=== PATIENT | female | born 1975 | race Caucasian/White ===

== ENCOUNTER 2017-06-21 09:33 | Inpatient (IN) | payer OTHER ==
[2017-06-21] MEDS ORDERED: METHYLERGONOVINE 0.2 MG INJ IM (12:00)
[2017-06-21] MEDS ORDERED: IBUPROFEN 600 MG TAB PO (12:00)
[2017-06-21] MEDS ORDERED: MISOPROSTOL 200 MCG TAB PR (12:00)
[2017-06-21] MEDS ORDERED: OXYTOCIN 30 UNITS/LR 500 ML IV ×2 (12:00)
[2017-06-21] MEDS ORDERED: CARBOPROST 250 MCG INJ IM (12:00)
[2017-06-21] MEDS ORDERED: BUTORPHANOL 2 MG INJ IV (12:00)
[2017-06-21] MEDS: LACTATED RINGER'S 1,000 ML IV (14:17)
[2017-06-21] MEDS: OXYTOCIN 30 UNITS/LR 500 ML IV ×3 (14:23→21:28)
[2017-06-21 14:32] LABS: ADD MAN DIFF? NO
[2017-06-21 14:34] LABS: BASOPHILS % 0.2 % (0.0-2.0); EOSINOPHILS % 0.2 % (0.0-7.0); HEMATOCRIT 38.5 % (37.0-47.0); HEMOGLOBIN 13.2 g/dl (12.0-16.0); LYMPHOCYTES % 11.7 % (15.0-51.0); MEAN CORPUSCULAR HEMOGLOBIN 31.9 pg (29.0-33.0); MEAN CORPUSCULAR HGB CONC 34.3 g/dl (32.0-37.0); MEAN PLATELET VOLUME 12.1 fl (7.4-10.4); MONOCYTE # 0.5 10^3/ul (0.3-0.9); MONOCYTES % 5.5 % (0.0-11.0); NEUTROPHIL # 7.3 10^3/ul (1.6-7.5); NEUTROPHILS % 81.9 % (39.0-77.0); PLATELET COUNT 174 10^3/UL (140-415); RED BLOOD COUNT 4.14 10^6/ul (4.20-5.40)
[2017-06-21 14:34] LABS: WHITE BLOOD COUNT 8.9 10^3/ul (4.8-10.8)
[2017-06-21 14:52] LABS: INR 0.87; PROTIME 11.9 Sec (11.9-14.9); PT RATIO 0.9
[2017-06-21 14:53] LABS: PARTIAL THROMBOPLASTIN TIME 27.6 Sec (25.0-35.0)
[2017-06-21 15:26] LABS: RAPID PLASMA REAGIN NONREACTIVE (NR)
[2017-06-21] MEDS: LIDOCAINE 1% (MPF) 30 ML INJ INJ (16:37)
[2017-06-21] MEDS ORDERED: ACETAMINOPHEN 325 MG TAB PO (18:30)
[2017-06-21] MEDS ORDERED: LANOLIN 7 GM TUBE TOP (18:30)
[2017-06-21] MEDS: IBUPROFEN 600 MG TAB PO ×2 (18:30→23:59)
[2017-06-21] MEDS ORDERED: ONDANSETRON 4 MG INJ IV (18:30)
[2017-06-21] MEDS ORDERED: HYDROCODONE/APAP (5/325) TAB PO (18:30)
[2017-06-21] MEDS ORDERED: DIBUCAINE 1% 30 GM OINT TOP (18:30)
[2017-06-21] MEDS ORDERED: OXYCODONE/ASPIRIN (4.88/325) TAB PO ×2 (18:30)
[2017-06-21] MEDS: WITCH HAZEL/GLYCERIN PAD PR (21:25)
[2017-06-21] MEDS: BENZOCAINE 20% 56 ML SPRAY TOP (21:26)
[2017-06-21] MEDS: SENNA/DOCUSATE NA (8.6MG/50MG) TAB PO (21:32)
[2017-06-21] MEDS: HYDROCODONE/APAP (5/325) TAB PO (21:33)
[2017-06-22] MEDS: IBUPROFEN 600 MG TAB PO ×3 (05:27→17:39)
[2017-06-22] MEDS: SENNA/DOCUSATE NA (8.6MG/50MG) TAB PO (10:37)
[2017-06-22 10:59] LABS: ADD MAN DIFF? NO
[2017-06-22 11:08] LABS: WHITE BLOOD COUNT 10.6 10^3/ul (4.8-10.8)
[2017-06-22 11:08] LABS: BASOPHILS % 0.3 % (0.0-2.0); EOSINOPHILS % 0.2 % (0.0-7.0); HEMATOCRIT 32.6 % (37.0-47.0); LYMPHOCYTES # 1.3 10^3/ul (0.8-2.9); LYMPHOCYTES % 11.8 % (15.0-51.0); MEAN CORPUSCULAR HEMOGLOBIN 31.7 pg (29.0-33.0); MEAN CORPUSCULAR HGB CONC 33.7 g/dl (32.0-37.0); MEAN CORPUSCULAR VOLUME 93.9 fl (82.0-101.0); MEAN PLATELET VOLUME 11.7 fl (7.4-10.4); MONOCYTE # 0.8 10^3/ul (0.3-0.9); MONOCYTES % 7.2 % (0.0-11.0); NEUTROPHIL # 8.4 10^3/ul (1.6-7.5); NEUTROPHILS % 79.8 % (39.0-77.0); PLATELET COUNT 152 10^3/UL (140-415); RED BLOOD COUNT 3.47 10^6/ul (4.20-5.40)
[2017-06-23] MEDS: SENNA/DOCUSATE NA (8.6MG/50MG) TAB PO ×2 (00:16→08:05)
[2017-06-23] MEDS: IBUPROFEN 600 MG TAB PO ×4 (00:16→17:58)
[2017-06-23] MEDS: BENZOCAINE 20% 56 ML SPRAY TOP (08:05)
[2017-06-23] MEDS: WITCH HAZEL/GLYCERIN PAD PR (08:06)
[2017-06-23] MEDS: MEASLES,MUMPS,RUBELLA VACCINE INJ SC* (09:00)
[2017-06-23] MEDS: DIPHTH/TET/ACEL PERTUSS (ADULT) 0.5 ML VIAL IM* (15:53)
== END 2017-06-23 18:45 | disposition home or self-care (01) | DRG 775 ==
LOC: OBT 09:33 → L-D 09:33 → OBT 11:54 → L-D 11:45 → PP1 18:23
PROVIDERS: Obstetrics & Gynecology
PROC: 10E0XZZ Delivery of Products of Conception, External Approach (ICD-10-PCS; principal; 2017-06-21)
PROC: 0HQ9XZZ Repair Perineum Skin, External Approach (ICD-10-PCS; 2017-06-21)
DX: O62.3 Precipitate labor (principal); O70.0 First degree perineal laceration during delivery; Z3A.40 40 weeks gestation of pregnancy; Z37.0 Single live birth
CPT/HCPCS: 85025; 85610; 85730; 86592; 86900; 86901; 90715

== ENCOUNTER 2017-11-06 09:49 | Emergency (ER) | payer OTHER ==
[2017-11-06] MEDS: ONDANSETRON (ODT) 4 MG TAB ODT (11:17)
[2017-11-06] MEDS: KETOROLAC 60 MG INJ IM (11:19)
[2017-11-06 11:33] LABS: ADD MAN DIFF? NO
[2017-11-06 11:43] LABS: WHITE BLOOD COUNT 9.8 10^3/ul (4.8-10.8)
[2017-11-06 11:43] LABS: BASOPHILS % 0.3 % (0.0-2.0); EOSINOPHILS % 0.2 % (0.0-7.0); HEMATOCRIT 41.7 % (37.0-47.0); LYMPHOCYTES # 1.4 10^3/ul (0.8-2.9); LYMPHOCYTES % 14.6 % (15.0-51.0); MEAN CORPUSCULAR HEMOGLOBIN 30.9 pg (29.0-33.0); MEAN CORPUSCULAR HGB CONC 33.6 g/dl (32.0-37.0); MEAN CORPUSCULAR VOLUME 92.1 fl (82.0-101.0); MEAN PLATELET VOLUME 10.7 fl (7.4-10.4); MONOCYTE # 0.6 10^3/ul (0.3-0.9); MONOCYTES % 6.1 % (0.0-11.0); NEUTROPHIL # 7.7 10^3/ul (1.6-7.5); NEUTROPHILS % 78.4 % (39.0-77.0); PLATELET COUNT 257 10^3/UL (140-415); RED BLOOD COUNT 4.53 10^6/ul (4.20-5.40)
[2017-11-06 12:01] LABS: ALANINE AMINOTRANSFERASE 34 IU/L (13-69); ALBUMIN 4.4 g/dl (3.3-4.9); ALBUMIN/GLOBULIN RATIO 1.22; ALKALINE PHOSPHATASE 68 IU/L (42-121); AMYLASE 76 U/L (11-123); ANION GAP 13 (8-16); ASPARTATE AMINO TRANSFERASE 26 IU/L (15-46); BILIRUBIN,INDIRECT 0.5 mg/dl (0-1.1); BILIRUBIN,TOTAL 0.5 mg/dl (0.2-1.3); BLOOD UREA NITROGEN 14 mg/dl (7-20); CALCIUM 8.9 mg/dl (8.4-10.2); CARBON DIOXIDE 27 mmol/L (21-31); CHLORIDE 107 mmol/L (97-110); CREATININE 0.72 mg/dl (0.44-1.00); GLUCOSE 120 mg/dl (70-220); LIPASE 70 U/L (23-300); POTASSIUM 3.7 mmol/L (3.5-5.1); SODIUM 143 mmol/L (135-144)
[2017-11-06 12:17] LABS: ADD UMIC YES; UR ASCORBIC ACID NEGATIVE (NEGATIVE); UR BACTERIA FEW /HPF (NONE SEEN); UR BILIRUBIN (Dip) NEGATIVE (NEGATIVE); UR BLOOD (Dip) 1+ mg/dL (NEGATIVE); UR CLARITY CLOUDY (CLEAR); UR COLOR YELLOW (YELLOW); UR GLUCOSE (Dip) NEGATIVE (NEGATIVE); UR KETONES (Dip) NEGATIVE (NEGATIVE); UR LEUKOCYTE ESTERASE (Dip) NEGATIVE Leu/ul (NEGATIVE); UR MUCUS MANY /HPF (NONE SEEN); UR NITRITE (Dip) NEGATIVE (NEGATIVE); UR RBC 69 /HPF (0-5); UR SPECIFIC GRAVITY (Dip) 1.023 (1.003-1.030); UR SQUAMOUS EPITHELIAL CELL FEW /HPF (FEW); UR TOTAL PROTEIN (Dip) NEGATIVE (NEGATIVE); UR UROBILINOGEN (Dip) 2+ mg/dL (NEGATIVE); UR WBC 3 /HPF (0-5)
[2017-11-06] MEDS: HYDROCODONE/APAP (10/325) TAB PO (12:50)
== END 2017-11-06 12:51 | disposition home or self-care (01) ==
LOC: E/R 09:49 → FTE 12:51
DX: N20.0 Calculus of kidney (principal)
CPT/HCPCS: 36415; 74176; 80053; 81001; 81025; 82150; 83690; 85025; 87086; 96372; 99285-25